=== PATIENT | female | born 1995 | race Caucasian/White ===

== ENCOUNTER 2016-07-21 10:38 | Emergency (ER) | payer OTHER ==
[~2016-07-21] VITALS: Ht 157.5 cm; Wt 68.0 kg
[2016-07-21 10:43] VITALS: BP 116/75
--- NOTE | 2016-07-21 10:47 | NUR ---
Nicholas glaser in [facility] - 07/21/16 at 1047 by KATELYN Patient ambulted Addendum: 07/21/16 at 1047 by KATELYN Quang glaser in [facility] - 07/21/16 at 1047 by KATELYN Patient ambulated to bed 07.
--- NOTE | 2016-07-21 10:47 | NUR ---
Patient ambulated to bed 07.
--- NOTE | 2016-07-21 10:50 | NUR ---
PT PRESENTS TO ER W/C/O COUGH X5 DAYS. PT DENIES ANY MEDICAL HX. DENIES N/V/D; SKIN IS PINK/WARM/DRY; AAOX4 WITH EVEN AND STEADY GAIT; LUNGS CLEAR BL; HR EVEN AND REGULAR; PT DENIES ANY FEVER, CP, OR SOB AT THIS TIME; PATIENT STATES PAIN OF 0/10 AT THIS TIME; VSS; PATIENT POSITIONED FOR COMFORT; HOB ELEVATED; BEDRAILS UP X2; BED DOWN. ER MD MADE AWARE OF PT STATUS.
[2016-07-21 12:42] VITALS: BP 122/84
--- NOTE | 2016-07-21 12:42 | NUR ---
Patient discharged with v/s stable. Written and verbal after care instructions given and explained. Patient verbalized understanding. Ambulatory with steady gait. All questions addressed prior to discharge. Advised to follow up with PMD.
== END 2016-07-21 12:42 | disposition home or self-care (01) ==
LOC: MED 10:38
DX: B34.9 Viral infection, unspecified (principal)